=== PATIENT | female | born 1990 | race Caucasian/White ===

== ENCOUNTER 2018-05-02 05:46 | Inpatient (IN) ==
[2018-05-04 07:52] VITALS: BP 111/55
== END 2018-05-04 13:10 | disposition home or self-care (01) | DRG 560 ==
LOC: N.LDOUT 05:46 → N.LD 05:47 → N.OB 15:01
PROVIDERS: ADMIT Obstetrics & Gynecology; ATTEND Obstetrics & Gynecology